=== PATIENT | female | born 1995 | race Caucasian/White ===

== ENCOUNTER 2021-04-13 10:23 | Observation (INO) | payer OTHER, SELFPAY ==
[2021-04-13] VITALS (11 sets, daily range): BP systolic 87–128; BP diastolic 54–88; PULSE 80–126; RESP 16–18; TEMP 37.2–38.4; O2SAT 96–100; BMI 20.1; BMI 21.1
--- NOTE | 2021-04-13 10:40 | CT_ITS ---
STUDY: CT ABDOMEN AND PELVIS WITH CONTRAST REASON FOR EXAM: Female, 25 years old. Right-sided abdominal pain. The patient is 6 days . RADIATION DOSAGE (If Supplied By Facility): CTDIvol = ( 7.40 ) mGy, DLP = ( 268.46 ) mGycm TECHNIQUE: Transaxial images were obtained from the dome of the diaphragm to the symphysis pubis with oral contrast. Oral and amp; IV GASTROGRAFIN and amp; 100ML ISOVUE 300 was administered. Sagittal and coronal images were reconstructed. Individualized dose optimization techniques were used for this CT. COMPARISON: None. FINDINGS: The visualized lung bases are unremarkable. The visualized portions of the heart are within normal limits. Normal liver. Normal gallbladder and extrahepatic biliary system. There is mild splenomegaly. Normal pancreas. Normal bilateral adrenal glands. Normal right kidney. Normal left kidney. Normal visualized stomach. Normal small intestine. Normal colon. There is a tubular, thick-walled appendix (>7mm), consistent with acute appendicitis. Normal abdominal aorta. Normal inferior vena cava. Normal retroperitoneum. Normal urinary bladder. The uterus is enlarged in keeping with the patient''s history of recent . Prominent vascularity in the region of the uterus. Normal abdominal wall. Normal osseous structures. CT/Abdomen/Pelvis WITH Contrast IMPRESSION: Uterine enlargement in keeping with the patient''s history of recent stage. Findings suggestive of noncomplicated acute appendicitis. Electronically Signed: Carlos Ingram MD at 12:55 EDT , Service support ,
--- NOTE | 2021-04-13 10:41 | EDS_ITS ---
HPI History of Present Illness Chief Complaint: Abd Pain Informant: patient and spouse/S.O. Narrative Narrative: 25-year-old female day 6 presenting for the evaluation of fever and abdominal pain. Patient states that she woke yesterday morning with a headache and went to [facility]. There she was noted to have a white count of 18. Her Covid test was negative. Chest x-ray and pelvic ultrasound were negative. She returned home and developed a fever up to 101. She then began to have a pain in the right flank right lateral abdomen. She states that that pain is worse with movement. She denies any cough sore throat. She has breast-feeding and denies any breast pain or erythema. She notes generalized myalgias and continued slight headache. Headache is not positional.. She last had Motrin at 0430. PFS PFS Allergy/AdvReac Type Severity Reaction Status Date / Time No Known Allergies Allergy Verified 04/13/21 10:24 Social History (Updated 04/13/21 @ 10:[address] Rosalio Marc, DO) Smoking Status: Never smoker substance use type: does not use ROS ROS ED Constitutional Constitutional ED: Reports chills and fever(s); Denies weight loss Eyes Eyes: Denies change in vision or diplopia ENT ENT ED: Denies ear pain, rhinorrhea or sore throat Cardiovascular Cardiovascular: Denies chest pain, orthopnea, palpitations or racing heartbeat Respiratory/Chest Respiratory/Chest: Denies cough, dyspnea or orthopnea Gastrointestinal Gastrointestinal: Reports abdominal pain and nausea; Denies diarrhea or vomiting Genitourinary Genitourinary ED: Denies dysuria, hematuria or urinary frequency Musculoskeletal Musculoskeletal: Reports arthralgias and myalgias Integumentary Denies abscess or rash Neurologic Neurologic: Reports headache(s); Denies weakness Psychiatric Psychiatric: Denies anxiety, depression, suicidal ideation or suicidal thoughts Endocrine Endocrinology: Denies polydipsia, polyphagia or polyuria Allergic/Immunologic Allergic/Immunologic ED: Denies mouth swelling, tongue swelling or urticaria EXAM Physical Exam Const Vital Signs: 04/13/21 10:24 04/13/21 10:31 04/13/21 11:33 Temperature 99.8 F H Temperature Source Temporal Pulse Rate 126 H 114 H Respiratory Rate 18 Blood Pressure 87/55 L 105/70 Blood Pressure Mean 65 81 Blood Pressure Source Blood Pressure Position Blood Pressure Location Pulse Ox 99 98 Oxygen Delivery Method Room Air Room Air 04/13/21 12:47 04/13/21 13:23 Temperature 100.6 F H 101.2 F H Temperature Source Oral Oral Pulse Rate 90 Respiratory Rate 18 Blood Pressure 128/88 H Blood Pressure Mean 101 Blood Pressure Source Monitor Blood Pressure Position Semi-Fowlers Blood Pressure Location Right Arm Pulse Ox 99 Oxygen Delivery Method Room Air Positive well nourished and well developed General Appearance ED: well developed HEENT Reports normocephalic, head/scalp atraumatic and moist mucous membranes Eyes PERRL and EOMs intact bilaterally Neck no lymphadenopathy, supple and no JVD General: Negative for tenderness Resp normal respiratory effort and clear to auscultation bilaterally Cardio regular rate, regular rhythm and no murmurs GI GI Narrative: Patient reports tenderness to palpation just underneath her rib cage in the midaxillary line Auscultation: normoactive bowel sounds Palpation: soft; Negative for guarding or rebound tenderness present Back/Spine no CVA tenderness and normal ROM Extremity normal to inspection General Extremety ED: Negative for edema General Extremity: Negative for edema Neuro oriented x3 and CN's II-XII intact bilaterally Sensorium / Orientation: alert Motor Exam: strength 5/5 throughout Psych mental status grossly normal Mood & Affect: Negative for depressed or tearful Skin no rashes or lesions noted and no wounds MDM MDM MDM Narrative Medical decision making narrative: Patient's white count is 12 down from the 18,000 yesterday. Urinalysis shows greater than 100 white cells 1+ bacteria positive leukocyte esterase. CT of the abdomen pelvis demonstrates acute appendicitis. Patient received Tylenol for fever as well as IV fluids and then later Zosyn. Case was discussed with on-call surgery who will be down to evaluate the patient. Lab Data Attestation: I reviewed the patient's lab results. Labs: Laboratory Results - last 24 hr 04/13/21 04/13/21 04/13/21 10:46 10:55 10:55 WBC 12.0 H RBC 4.10 L Hgb 13.0 Hct 39.3 MCV 95.9 MCH 31.7 MCHC 33.1 RDW Std Deviation 47.3 H RDW Coeff of Ehsan 13.3 Plt Count 220 MPV 10.1 Immature Gran % (Auto) 1.100 H Neut % (Auto) 87.4 H Lymph % (Auto) 7.0 L [place] % (Auto) 4.2 Eos % (Auto) 0.1 Baso % (Auto) 0.2 Absolute Neuts (auto) 10.5 H Absolute Lymphs (auto) 0.84 Nucleated RBC % 0 Sodium 137 Potassium 3.4 L Chloride 107 Carbon Dioxide 25.0 Anion Gap 5 BUN 9 Creatinine 0.63 Estim Creat Clear Calc 118.31 Est GFR (MDRD) Af Amer 147 Est GFR (MDRD) Non-Af 122 BUN/Creatinine Ratio 14.2 Glucose 108 H Calcium 8.4 L Total Bilirubin 0.90 AST 17 ALT 24 Alkaline Phosphatase 122 H Total Protein 6.8 Albumin 2.6 L Globulin 4.2 Albumin/Globulin Ratio 0.6 L Lipase 81 Urine Color Yellow Urine Clarity Sl. Cloudy Urine pH 7.0 Ur Specific [place] 1.010 Urine Protein 30 H Urine Glucose (UA) Normal Urine Ketones 50 H Urine Occult Blood 250 H Urine Nitrite Negative Urine Bilirubin Negative Urine Urobilinogen 1 H Ur Leukocyte Esterase 500 H Urine RBC 0 SEEN Urine WBC >100 SEEN Ur Squamous Epith Cells 0-5 SEEN Urine Bacteria 1+ Urine Mucus 0 SEEN Radiography Diagnostic Testing: Radiology Impression Abdomen/Pelvis CT 04/13/21 10:40 IMPRESSION: Uterine enlargement in keeping with the patient''s history of recent stage. Findings suggestive of noncomplicated acute appendicitis. Electronically Signed: Carlos Ingram MD at 12:55 EDT , Service support , Discharge Plan Triage Chief Complaint: Abd Pain ED Provider: Rosalio Marc Dx/Rx/DC Orders Clinical Impression: Acute appendicitis, Urinary tract infection Primary Care Provider: Nely Samuel Disposition Disposition: Acute Care [facility]
[2021-04-13 10:52] LABS: Mucous, Urine 0 SEEN /hpf (<or=2+); Red Blood Cells-Urine 0 SEEN /hpf (0-5)
[2021-04-13 10:53] LABS: Color, Urine Yellow (Yellow); Glucose, Dipstick Normal (Normal); Ketone-Dipstick 50 mg/dl (Negative); Leukocyte Esterase-Dipstick 500 /ul (Negative); Nitrite-Dipstick Negative (Negative); Occult Blood-Urine 250 /ul (Negative); Protein-Dipstick 30 mg/dl (Negative); Urine Bilirubin Dipstick Negative (Negative); Urine Clarity Sl. Cloudy (Clear); Urine Urobilinogen 1 mg/dl (Normal)
[2021-04-13] MEDS: 0.9% Normal Saline 1,000 ML 1000 ML IV (10:54)
[2021-04-13 10:59] LABS: Bacteria 1+ /hpf (None Seen); Squamous Epithelial Cells - UA 0-5 SEEN /hpf (5-10)
[2021-04-13 11:00] LABS: White Blood Cells >100 SEEN /hpf (0-5)
[2021-04-13 11:04] LABS: Absolute Lymphocyte Count 0.84 X10^3/uL (0.83-4.51); Absolute Neutrophil Count 10.5 X10^3/uL (2.0-7.7); Basophil# 0.02 X10^3/uL; Basophil% 0.2 % (0-1); Eosinophil# 0.01 X10^3/uL; Eosinophils% 0.1 % (0-5); Hematocrit 39.3 % (37-47); Lymphocyte # 0.84 X10^3/ul (0.83-4.51); Mean Corp Hgb Conc 33.1 g/dL (32-36); Mean Corpuscular Hgb 31.7 pg (27.0-32.0); Mean Corpuscular Volume 95.9 fL (81-99); Mean Platelet Vol. 10.1 fl (6.2-12.0); Monocyte% 4.2 % (0-10); NRBC Flagged by Analyzer 0 % (0-5); Neutrophil # 10.51 X10^3/uL (2.7-7.7); Neutrophil % 87.4 % (47-70); Platelet Count 220 K/mm3 (150-450); RBC Distribution Width CV 13.3 % (11.6-14.6); RBC Distribution Width SD 47.3 fl (35.1-43.9)
[2021-04-13 11:18] LABS: ALB/GLOB Ratio 0.6 RATIO (0.9-2.4); AST(SGOT) 17 U/L (15-37); Alanine Aminotransfer ALT/SGPT 24 U/L (13-56); Albumin, Serum 2.6 g/dL (3.2-5.0); Alkaline Phosphatase 122 U/L (45-117); Anion Gap 5 (5-15); BUN 9 mg/dL (7-18); BUN/Creat Ratio 14.2 RATIO (10-20); Calcium,Total 8.4 mg/dL (8.5-10.1); Chloride 107 mmol/L (98-107); Creatinine, Serum 0.63 mg/dL (0.55-1.02); EST Glomerular Filtration Rate 122 mL/min (>60); Est Glom Filt Rate - Afr Amer 147 mL/min (>60); Estimated Creatinine Clearance 118.31 ml/min; Globulin 4.2 g/dL (2.2-4.2); Glucose 108 mg/dL (74-106); Lipase 81 U/L (73-393); Potassium 3.4 mmol/L (3.5-5.1); Protein, Total 6.8 g/dL (6.4-8.2); Sodium Level 137 mmol/L (136-145)
[2021-04-13] MEDS: Acetaminophen 500 MG Tablet 1000 MG PO (13:00)
--- NOTE | 2021-04-13 13:48 | NURSING ---
OR THEN MED SURG OBS BORTZ APPENDICITIS
--- NOTE | 2021-04-13 15:07 | HP.PCM_ITS ---
HPI - General General Date of Admission: 04/13/21 HPI Narrative JUAN DAVID JACOBSON, is a 25 F who presents to [facility] ED 6 days with a 1 day history of focal right lower quadrant pain and associated signs and symptoms of fever and nausea/vomiting. She reports that she went to an urgent care facility yesterday 04/12/2021 with complaints of a headache but later yesterday evening developed the abdominal pain which brought her to the ED today and continues to intensify progressively. Her ED work-up is notable for CBC that shows a mild leukocytosis with left shift and CT imaging confirming evidence of acute, uncomplicated appendicitis. Patient does report a rather routine vaginal delivery 6 days ago and she is currently breast-feeding. [facility] Home Medications [id number] [] 1 tab PO 04/13/21 [History Last Taken Unknown] Allergy/AdvReac Type Severity Reaction Status Date / Time No Known Allergies Allergy Verified 04/13/21 10:24 Social History (Updated 04/13/21 @ 10:[address] Rosalio Marc, DO) Smoking Status: Never smoker substance use type: does not use ROS Gastrointestinal Gastrointestinal: Reports abdominal pain and nausea; Denies constipation Vital Signs Vital Signs Vital Signs: 04/13/21 10:24 04/13/21 10:31 04/13/21 11:33 Temperature 99.8 F H Temperature Source Temporal Pulse Rate 126 H 114 H Respiratory Rate 18 Blood Pressure 87/55 L 105/70 Blood Pressure Mean 65 81 Blood Pressure Source Blood Pressure Position Blood Pressure Location Pulse Ox 99 98 Oxygen Delivery Method Room Air Room Air 04/13/21 12:47 04/13/21 13:23 04/13/21 13:37 Temperature 100.6 F H 101.2 F H 101.2 F H Temperature Source Oral Oral Oral Pulse Rate 90 90 Respiratory Rate 18 18 Blood Pressure 128/88 H 128/88 H Blood Pressure Mean 101 101 Blood Pressure Source Monitor Blood Pressure Position Semi-Fowlers Blood Pressure Location Right Arm Pulse Ox 99 99 Oxygen Delivery Method Room Air Room Air 04/13/21 14:50 Temperature Temperature Source Pulse Rate Respiratory Rate Blood Pressure 97/60 Blood Pressure Mean 72 Blood Pressure Source Blood Pressure Position Blood Pressure Location Pulse Ox 96 Oxygen Delivery Method Room Air Weight Weight: 121 lb 0.54 oz Body Mass Index (BMI) 20.1 Physical Exam Const alert and oriented x3 General Appearance: cooperative Resp normal respiratory effort GI soft to palpation Palpation: tender McBurney's point, Obturator sign (Negative) and Psoas sign (Negative) Results Lab / Micro Data Result Diagrams: 04/13/21 10:55 04/13/21 10:55 Labs: Laboratory Results - last 24 hr 04/13/21 10:46: Urine Color Yellow, Urine Clarity Sl. Cloudy, Urine pH 7.0, Ur Specific [place] 1.010, Urine Protein 30 H, Urine Glucose (UA) Normal, Urine Ketones 50 H, Urine Occult Blood 250 H, Urine Nitrite Negative, Urine Bilirubin Negative, Urine Urobilinogen 1 H, Ur Leukocyte Esterase 500 H, Urine RBC 0 SEEN, Urine WBC >100 SEEN, Ur Squamous Epith Cells 0-5 SEEN, Urine Bacteria 1+, Urine Mucus 0 SEEN 04/13/21 10:55: WBC 12.0 H, RBC 4.10 L, Hgb 13.0, Hct 39.3, MCV 95.9, MCH 31.7, MCHC 33.1, RDW Std Deviation 47.3 H, RDW Coeff of Ehsan 13.3, Plt Count 220, MPV 10.1, Immature Gran % (Auto) 1.100 H, Neut % (Auto) 87.4 H, Lymph % (Auto) 7.0 L , [place] % (Auto) 4.2, Eos % (Auto) 0.1, Baso % (Auto) 0.2, Absolute Neuts (auto) 10.5 H, Absolute Lymphs (auto) 0.84, Nucleated RBC % 0 04/13/21 10:55: Sodium 137, Potassium 3.4 L, Chloride 107, Carbon Dioxide 25.0, Anion Gap 5, BUN 9, Creatinine 0.63, Estim Creat Clear Calc 118.31, Est GFR (MDRD) Af Amer 147, Est GFR (MDRD) Non-Af 122, BUN/Creatinine Ratio 14.2, Glucose 108 H, Calcium 8.4 L, Total Bilirubin 0.90, AST 17, ALT 24, Alkaline Phosphatase 122 H, Total Protein 6.8, Albumin 2.6 L, Globulin 4.2, Albumin/Gl obulin Ratio 0.6 L, Lipase 81 Micro: Microbiology 04/13/21 13:35 Nasal Secretion SARS-CoV-2 Antigen (Rapid) - Final Radiology Impression Abdomen/Pelvis CT 04/13/21 10:40 IMPRESSION: Uterine enlargement in keeping with the patient''s history of recent stage. Findings suggestive of noncomplicated acute appendicitis. Electronically Signed: Carlos Ingram MD at 12:55 EDT , Service support , Assessment & Plan Assessment/Plan (1) Acute appendicitis: PLAN: Patient with clinical history and work-up consistent with acute appendicitis 6 days . I described the treatment of appendicitis as being antibiotics plus surgery versus antibiotics alone and shared with her why I favored a recommendation of laparoscopic appendectomy. She is receptive of this recommendation and wishes to proceed as described. Questions were taken from both her and her regarding details of the operation as well as postoperative recovery. Plan to proceed for urgent laparoscopic appendectomy. Patient will require additional antibiotic treatment irrespective of intraoperative findings for concurrent UTI. Lastly, we discussed how Ms. Jacobson will need to take any perioperative narcotic usage into consideration while . Charges/Coding Visit Charges Inpatient E&M: 79900 Init Hosp L3
--- NOTE | 2021-04-13 19:00 | APP_PTH ---
PATIENT: JUAN DAVID MILES LOC: MS3 U#:[id number] AGE/SX: 25/F ROOM: HI314 RE04/13/[address]: Dr. Magdiel Guy MD : 1995 BED: 1 DIS: 04/14/2021 SPEC #: [id number] RECD: 04/14/21 08:48 STATUS: EVANGELINA REOswaldo #: [id number] AYUSH: 04/13/21 19:[address]: Magdiel Guy DEPT: SURGICAL PATHOLOGY RECD BY: Marielena Morrissey ENTERED: 04/14/21 10:09 SP TYPE: APPENDIX OTHR DR: Nely Samuel, CELLULAR BIOLOGIST-C Tissues: Appendix, NOS Procedures: Surgery Specimen Level III HEADER OPERATION: Laparoscopic appendectomy PRE-OP DIAGNOSIS: Acute appendicitis TISSUE SUBMITTED: Appendix MICROSCOPIC DIAGNOSIS Appendix, appendectomy: Focal mild acute appendicitis. See comment. REMY:elsy 04/18/2021 COMMENT Focal minimal acute inflammation is noted in the lumen and the superficial mucosa. MICROSCOPIC DESCRIPTION Slides are reviewed. GROSS DESCRIPTION Received in fixative is one container labeled with the patient's name and designated appendix. The specimen consists of an L-shaped appendix measuring 7.5 cm in length and up to 0.7 cm in diameter. The attached periappendiceal adipose tissue measures up to 1.5 cm in width. The serosa is congested. No obvious perforation is identified. The lumen contains fecal material. No fecalith is identified. Elevator Repair Mechanic sections are submitted in one cassette. / SJ:elsy 04/14/21 The rest of the appendix is submitted in two more cassettes, 2 & 3. / SJ:elsy 04/15/21 TC:2 CPT: 77995
[2021-04-14] VITALS (8 sets, daily range): BP systolic 93–138; BP diastolic 50–94; PULSE 75–114; RESP 16; TEMP 36.2–37.9; O2SAT 95–99
[2021-04-14] MEDS: Bupivacaine Mpf 0.5% 30 ML VIAL (00:26)
--- NOTE | 2021-04-14 00:28 | PCM.OPRPT ---
Problems Associated Problem List Diagnoses (1) Acute appendicitis: Report of Operation Date of Procedure: 04/14/21 Pre-Operative Diagnosis: Appendicitis Post-Operative Diagnosis: Normal?appearing appendix with small volume pelvic/peritoneal ascites Surgery/Procedure Performed:: Laparoscopic appendectomy Description of Surgical Findings:: ?Normal?appearing appendix ?Small?volume peritoneal and pelvic ascites ?Grossly normal bilateral adnexa ?Grossly normal small bowel and colon ?Grossly normal gallbladder Surgeon: Magdiel Guy industrial electrical engineer: Pineda Bernard Type of Anesthesia: General Anesthesiologist: Skyler Reddy Specimen's removed: Appendix Estimated Blood Loss (mL): <5 Description of Procedure: After appropriate notification in the preoperative holding area, the patient was brought to the operating room and placed supine on the operating room table. Antibiotics were redosed per anesthesia.. Patient was then induced with general endotracheal anesthetic. A Whittaker catheter was placed since it was unknown when the patient last voided spontaneously. The abdomen was prepped and draped in usual sterile fashion. A formal timeout was conducted to confirm both the patient and the procedure. A supraumbilical incision was made and carried down to the level of the fascia which was sharply opened. After opening the peritoneum in like fashion and confirming no adhesions to the underside of the peritoneum, a balloon trocar was placed and pneumoperitoneum was established to 15 mmHg. The peritoneum was inspected and there were no signs of inadvertent injury from this Sparks entry. 2 additional 5 mm trochars were placed in the left lower quadrant and suprapubic positions. Patient was positioned in Trendelenburg with the left side down. The appendix was visualized with no evidence of inflammation but there was a small volume of serous peritoneal ascites adjacent to the appendix in the right paracolic gutter. Using blunt laparoscopic dissection, a window was made in the mesoappendix adjacent to the appendiceal base. Then the base of the appendix was sealed and amputated with the use of an Endo CRISPIN stapler. The mesoappendix was divided with application of a laparoscopic harmonic. The appendix was placed in an Endo Catch bag. The staple line was inspected for hemostasis. After hemostasis was confirmed, the appendix was removed from the umbilical port site. The serous fluid of the right paracolic gutter was suctioned free of the peritoneum. Given the normal?appearing appendix, a brief diagnostic laparoscopy was performed revealing grossly normal bilateral adnexa, small and large bowel, and gallbladder. Pneumoperitoneum was then evacuated and the supraumbilical port site fascia was closed with 0 Vicryl in a [id number] fashion. The port sites were infiltrated with 20 mL 0.5% plain bupivacaine local anesthetic. The skin of each port site was closed with 4-0 Monocryl in a subcuticular fashion. Steri-Strips and Band-Aids were applied as dressings. Patient tolerated procedure well without any apparent complications. They were awoken from general anesthetic without issue and transferred to post anesthesia care unit for ongoing recovery. Complications None Admit VTE Documentation VTE Mechan Device Prophylaxis: SCD's Procedures Digestive 40xxx-49xxx: 56334 Laparoscopy appendectomy
[2021-04-14] MEDS: HYDROmorphone 0.5 MG/0.5 ML SYRINGE IV ×2 (01:55→06:57)
[2021-04-14] MEDS: Heparin Injection (Vial) 5,000 UNIT/ML VIAL 5000 UNIT SC (05:56)
[2021-04-14] MEDS: 0.9% Normal Saline 1,000 ML 100 ML IV (05:56)
[2021-04-14] MEDS: Acetaminophen 325 MG Tablet 650 MG PO (06:03)
--- NOTE | 2021-04-14 08:03 | PN.SURG_ITS ---
Subjective Subjective Patient seen and examined during AM rounds. She is somewhat tearful when I enter the room. She states that she is frustrated and questions whether she just had an unnecessary surgery. I provided her reassurance that given the presentation she had, surgery was certainly indicated. We also reviewed the intraoperative photos and she stated that she felt better after our conversation. She is having some incisional pain but this is manageable with the current pain medications. She has been tolerating her diet without subsequent nausea or vomiting. She has no bowel movements yet this admission. We are currently awaiting a spontaneous void for the postoperative phase. Objective Data Objective Data Vital Signs: Vital Signs Temp Pulse Resp BP Pulse Ox 99.3 F H 87 16 96/55 L 98 04/14/21 06:00 04/14/21 06:00 04/14/21 06:00 04/14/21 06:00 04/14/21 06:00 Oxygen Delivery Method Room Air Weight: 127 lb Body Mass Index (BMI) 21.1 Intake & Output: Intake and Output for Last 24 Hours 04/12/21 04/13/21 04/14/21 23:59 23:59 23:59 Intake Total 1100 / 1100 50 / 50 Output Total 900 / 900 Balance 1100 / 1100 -850 / -850 Lab / Micro Data Result Diagrams: 04/13/21 10:55 04/13/21 10:55 Labs: Laboratory Results - last 24 hr 04/13/21 10:46: Urine Color Yellow, Urine Clarity Sl. Cloudy, Urine pH 7.0, Ur Specific [place] 1.010, Urine Protein 30 H, Urine Glucose (UA) Normal, Urine Ketones 50 H, Urine Occult Blood 250 H, Urine Nitrite Negative, Urine Bilirubin Negative, Urine Urobilinogen 1 H, Ur Leukocyte Esterase 500 H, Urine RBC 0 SEEN, Urine WBC >100 SEEN, Ur Squamous Epith Cells 0-5 SEEN, Urine Bacteria 1+, Urine Mucus 0 SEEN 04/13/21 10:55: WBC 12.0 H, RBC 4.10 L, Hgb 13.0, Hct 39.3, MCV 95.9, MCH 31.7, MCHC 33.1, RDW Std Deviation 47.3 H, RDW Coeff of Ehsan 13.3, Plt Count 220, MPV 10.1, Immature Gran % (Auto) 1.100 H, Neut % (Auto) 87.4 H, Lymph % (Auto) 7.0 L , [place] % (Auto) 4.2, Eos % (Auto) 0.1, Baso % (Auto) 0.2, Absolute Neuts (auto) 10.5 H, Absolute Lymphs (auto) 0.84, Nucleated RBC % 0 04/13/21 10:55: Sodium 137, Potassium 3.4 L, Chloride 107, Carbon Dioxide 25.0, Anion Gap 5, BUN 9, Creatinine 0.63, Estim Creat Clear Calc 118.31, Est GFR (MDR D) Af Amer 147, Est GFR (MDRD) Non-Af 122, BUN/Creatinine Ratio 14.2, Glucose 108 H, Calcium 8.4 L, Total Bilirubin 0.90, AST 17, ALT 24, Alkaline Phosphatase 122 H, Total Protein 6.8, Albumin 2.6 L, Globulin 4.2, Albumin/Globulin Ratio 0.6 L, Lipase 81 Micro: Microbiology 04/13/21 13:35 Nasal Secretion SARS-CoV-2 Antigen (Rapid) - Final Radiography Diagnostic Testing: Radiology Impression Abdomen/Pelvis CT 04/13/21 10:40 IMPRESSION: Uterine enlargement in keeping with the patient''s history of recent stage. Findings suggestive of noncomplicated acute appendicitis. Electronically Signed: Carlos Ingram MD at 12:55 EDT , Service support , Physical Exam Const oriented x3 Resp normal respiratory effort GI GI Narrative: Patient's abdomen is nondistended and incision sites appear appropriate with OpSite dressings intact and no drainage. The abdomen is otherwise soft and appropriately tender to palpation about the incisions. Assessment & Plan Assessment/Plan (1) Acute appendicitis: QUALIFIERS: Acute appendicitis type: unspecified acute appendicitis type Qualified Code(s): K35.80 - Unspecified acute appendicitis PLAN: Postoperative day 1 from laparoscopic appendectomy. Appendix was grossly normal during the operation. I suspect her presentation was more related to a combination of factors including a laboratory?confirmed UTI and some constipation. Plan today will be to advance her diet as tolerated transition to oral pain medications and oral antibiotics, then discharge to home. (2) Urinary tract infection: QUALIFIERS: Encounter type: initial encounter PLAN: Patient had UTI on presentation to the ER yesterday. A Whittaker catheter was placed at the time of her operation for bladder decompression, but was promptly removed before her emergence from anesthesia. To complete treatment will pursue 2 additional days of p.o. antibiotics.
[2021-04-14] MEDS: Ciprofloxacin 500 MG Tablet PO (09:46)
--- NOTE | 2021-04-14 12:14 | DCINST_ITS ---
Discharge Instructions Diet Discharge Diet: No restrictions Activity Discharge Activity: May Not Drive (While taking narcotics) and May Shower (In 24 hours) May shower in (days): 1 May resume sexual activity in: 10-14 days Lifting Restrictions: No lifting greater than 15 pounds for 2 weeks postop Dressing / Incision Call your doctor if your incision/area has: Increased Redness, Foul Smelling Discharge and Swelling at the incision site Call your doctor if you observe: Fever of 101 or Higher Remove Dressing in: 1 day (Outer bandage (leaving Steri-Strips intact)) Follow Up Care Please Follow Up With: Magdiel Guy MD When: 2 weeks Test Results: Test results from this visit will be discussed in further detail at your follow-up appointment, if applicable. Discharge Plan Admission Admit Date/Time: 04/13/21 15:45 Primary Reason for Your Visit: Acute appendicitis Attending Provider: Magdiel Guy Primary Care Provider: Nely Samuel Instructions Patient Instructions: Surgery for Appendicitis Additional Instructions / Restrictions: ?Please take Tylenol and ibuprofen according to their label?alternating 1 for the other every 3 hours. take pain medication prescription as breakthrough. Discharge Orders/Prescriptions Prescriptions: New hydrocodone-acetaminophen 5-325 mg Tablet 1 tab PO Q6H PRN PRN (Reason: Pain Score 4-10) 5 Days Qty: 15 RF: 0 ciprofloxacin HCl 500 mg Tablet 500 mg PO BID 2 Days Qty: 4 RF: 0 Continued [id number]-[id number] 1 mg Tablet 1 tab PO RF: 0 Referrals / Follow Up: Nely Samuel, [employer] [Primary Care Provider] - Disposition Disposition (needs filled in before D/C Order can be placed): Home, Self Care
== END 2021-04-14 13:24 | disposition home or self-care (01) ==
LOC: ED 11:06 → SDC 13:20 → AC 13:22 → MS3 19:51
PROVIDERS: Admitting Provider Surgery; Emergency Provider Emergency Medicine; PCP Nurse Practitioner Family; Visit Provider Surgery
PROC: 0DTJ4ZZ Resection of Appendix, Percutaneous Endoscopic Approach (ICD-10-PCS; CPT 44970; principal; 2021-04-13 18:40)
DX: K35.80 Unspecified acute appendicitis (principal); R18.8 Other ascites; N39.0 Urinary tract infection, site not specified
CPT/HCPCS: 00840; 44970; 74177; 80053; 81001; 83690; 85025; 87077; 87086; 87088; 87426; 88304; 96361; 96365; 96372; 96375; 96376; 99218; 99251; 99285; J7030; Q9967; A4216; G0378; G0463; J2405